=== PATIENT | female | born 1940 | race Caucasian/White ===

== ENCOUNTER 2016-09-16 18:15 | Emergency (ER) | payer MEDICARE, OTHER ==
[2016-09-16 12:53] LABS: BASOPHILS 0.5 %; BASOPHILS ABSOLUTE 0.03 10/3/uL (0.0-0.16); EOSINOPHILS ABSOLUTE 0.22 10/3/uL (0.0-0.53); HEMATOCRIT 42.8 % (36.0-48.0); HEMOGLOBIN 13.7 g/dL (12.0-16.0); IMMATURE GRANULOCYTES 0.4 %; IMMATURE GRANULOCYTES ABSOLUTE 0.02 10/3/uL (0.0-0.11); LYMPHOCYTES 20.3 %; LYMPHOCYTES ABSOLUTE 1.11 10/3/uL (0.67-4.30); MANUAL DIFF NO %; MEAN CORPUSCULAR VOLUME 93.9 fL (80-100); MEAN PLATELET VOLUME 9.2 fL (9.2-13.0); MONOCYTES ABSOLUTE 0.38 10/3/uL (0.21-1.20); NEUTROPHILS 67.8 %; PLATELET COUNT 140 10/3/uL (150-400); RBC DISTRIBUTION WIDTH 14.4 % (12.0-16.0); RED CELL COUNT 4.56 10/6/uL (4.0-5.6); WHITE BLOOD CELLS 5.5 10/3/uL (4.5-10.5)
[2016-09-16 13:01] LABS: PARTIAL THROMBO TIME 28.1 SEC (22.5-37.2); PROTIME (NOT ORD) 12.9 SEC (12.0-14.5)
[2016-09-16 13:07] LABS: BUN (BLOOD UREA NITROGEN) 20 MG/DL (6-23); CALCIUM, SERUM 9.5 MG/DL (8.5-10.4); CHEST PAIN PROFILE TAT 0 Hrs 18 Mins; CHLORIDE, SERUM 99 MMOL/L (96-112); CO2 (CARBON DIOXIDE) 34 MMOL/L (24-34); CREATININE 0.93 MG/DL (0.55-1.02); GFR AFRICAN AMERICAN 70 ML/MIN (>=60); GFR NON AFRICAN AMERICAN 61 ML/MIN (>=60); POTASSIUM, SERUM 4.1 MMOL/L (3.5-5.3); SODIUM, SERUM 141 MMOL/L (135-148); TROPONIN I <0.02 NG/ML (<0.05)
[2016-09-16 13:08] LABS: GLUCOSE, SERUM 342 MG/DL (60-99)
[~2016-09-16 18:15] MED LIST: ACIDOPHILU2 PO; APIDRA SC; APRES25 PO; ASAB PO; ATV1 PO; B12100T PO; BARRIER CREAM TOP; BROVANA15 MCG INH; CARASPUDL PO; CEFT2 PO; CENTRUM PO; CENTRUM TAB1 TAB PO; CIP5 PO; CLEOCIN300 MG PO; COREG12 PO; COREG25 PO; COREG6 PO; COZ50 PO; COZAAR100 MG PO; DSS PO; DUONEB INH; FENESIN DM1 TAB PO; FERROUS SULF325 M1 PO; FISH OIL1200 MG PO; FISH-EPA1000 MG PO; FLONASE NAS; GLUCOPHAGE1000 MG PO; GLUCPH PO; GLUCXL10 PO; HALF81 PO; HCTZ50B PO; HYDROCHLOROT50 MG PO; I20 PO; I40 PO; INDE80 PO; INSULIN GLULISINE SC; K-TABS10 MEQ PO; KDUR10 PO; KLONO5 PO; L20 PO; L40 PO; LEVAQUIN750 MG PO; LEVEMFLXPN SC; LEVEMIR SC; LEVSINTAB PO; LOP25 PO; LORT7 PO; LORTAB 5 PO; LOVENOX40 SC; MAGOX4 PO; MAX25 PO; MICROZIDE PO; MOBIC15 MG PO; MUCINEX1200 MG PO; MUCINEX600 MG PO; MULTIVIT/MIN PO; NEUR300 PO; NEUR600 PO; NICODERM C14 MG/24 H TOP; NITROSTAT0.4 MG SL; NORCO1 TA1 PO; NORV10 PO; NORV25 PO; NOVOPEN SC; P10 PO; P5 PO; PAXIL40 MG PO; PERFOROM INH; PLAVIX PO; PREDNISONE2.5 MG PO; PRILOSEC10 MG PO; PRILOSEC40 MG PO; PRIM50B PO; PRIN5 PO; PROVHFA INH; PULMICORT90 MCG INH; PULRESP.25 INH; PULRESP.5 INH; RHINOCORT; SIN25 PO; SPIRIVA INH; STERAPRED DS10 MG; STERAPRED5 MG; STOOL SOFTEN100 MG PO; TOPXL25 PO; VENTOLIN HFA INH; VITAMIN C OR; VITAMIN C100 MG PO; VITAMIN D1000 UNI1 PO; VITC500 PO; VITE PO; ZANAFLEX 4 MG TA4 MG PO; ZOCOR40 PO; ZOFRAN4 PO; [UNRECOGNIZED DRUG - OTHER]; [UNRECOGNIZED DRUG - OTHER]
== END 2016-09-16 19:59 | disposition home or self-care (01) ==
LOC: ER 18:15
PROVIDERS: Emergency Medicine
DX: I50.9 Heart failure, unspecified (principal); I25.2 Old myocardial infarction; E11.9 Type 2 diabetes mellitus without complications; Z95.1 Presence of aortocoronary bypass graft; Z86.73 Personal history of transient ischemic attack (TIA), and cerebral infarction without residual deficits; Z87.442 Personal history of urinary calculi; Z87.891 Personal history of nicotine dependence; Z79.82 Long term (current) use of aspirin
CPT/HCPCS: 71020; 80048; 83735; 83880; 84484; 85025; 85610; 85730; 93005; 96374; 99285

== ENCOUNTER 2016-09-25 18:35 | Inpatient (IN) | payer MEDICARE, OTHER ==
--- NOTE | ~2016-09-25 | DS ---
Discharge Summary [facility] [address] [place]. [address] NAME: VIDHI SHETH : 42 STATUS : DIS IN PAT#: [id number] AGE: 75 ADM/REG DATE : 09/26/16 MR#: [id number] REPORT SERV DATE: 09/29/16 DICTATED BY: SUSAN COELHO II DATE: 09/27/16 REPORT STATUS : Draft TRANSCRIBED BY: MODL DATE: 09/27/16 ADMISSION DATE: 09/25/2016 DISCHARGE DATE: 09/27/2016 DISCHARGE DIAGNOSES: 1. Acute on chronic diastolic congestive heart failure. 2. Acute on chronic hypoxic respiratory failure. 3. Chronic obstructive pulmonary disease. 4. Obstructive sleep apnea. 5. Urinary tract infection. 6. Diabetes mellitus type 2, uncontrolled. 7. History of coronary artery disease and peripheral arterial disease. 8. History of sick sinus syndrome, status post permanent pacemaker. 9. Morbid obesity. BRIEF HISTORY OF PRESENT ILLNESS: The patient is a 75-year-old female with the above history, who presented to [facility] due to worsening edema and shortness of breath. For detailed history and physical examination, please see Dr. Diaz's note from September 25, 2016. HOSPITAL COURSE: After admission, the patient was given IV diuresis with good response in her lower extremity edema, currently it is nearly resolved. Her creatinine has remained stable around 1, and she has been switched to oral Bumex. At home, she was on Bumex 1 mg p.o. b.i.d. as well as Lasix 40 mg p.o. b.i.d. Given this did not seem to be controlling her edema, I will discontinue the Lasix and double her Bumex at home. She was also educated on fluid restriction as it appeared she was under the impression she needed to drink more fluid to help with her edema. Otherwise, she is on her baseline O2 of 3 liters by nasal cannula and saturating well. Her BNP on admission was not extremely high but 116. Chest x- ray showed mild venous congestion with mild basilar atelectasis. The patient was receiving home health and PT and will resume this, though we will add CHF protocol. Also, Dopplers of her lower extremities did not show any DVT. She will need a followup BMP this week to check on her creatinine and electrolytes given the increased dose of Bumex. Otherwise, she was given Rocephin for her UTI as she was having dysuria, and she had 62 white cells in her urine with large leukocyte esterase. Currently, urine culture is not back yet, but we will switch to Omnicef for 4 more days. Otherwise, her diabetes was very uncontrolled in the 200s and 300s. Her A1c is 9.8. I have increased her Levemir to 40 b.i.d. and increased her NovoLog to 8 with meals plus sliding scale. At this point, she is otherwise stable for discharge home. DISCHARGE MEDICATIONS: 1. Vitamin C 1000 mg p.o. at bedtime. 2. Aspirin 81 mg p.o. daily. 3. Bumex 2 mg p.o. b.i.d. 4. Coreg 25 mg p.o. b.i.d. 5. Plavix 75 mg p.o. daily. 6. Vitamin D3, 1000 units p.o. daily. 7. Ferrous sulfate 325 mg p.o. daily. Discharge Summary [address] [address] NAME: VIDHI SHETH : 42 STATUS : DIS IN PAT#: [id number] AGE: 75 ADM/REG DATE : 09/26/16 MR#: [id number] REPORT SERV DATE: 09/29/16 DICTATED BY: SUSAN COELHO II DATE: 09/27/16 REPORT STATUS : Draft TRANSCRIBED BY: MONY DATE: 09/27/16 8. Neurontin 300 mg p.o. b.i.d. 9. Levemir 40 units subcu b.i.d. 10.NovoLog 8 units subcu t.i.d. a.c. 11.Losartan 50 mg p.o. b.i.d. 12.Multivitamin daily. 13.Prilosec 40 mg p.o. daily. 14.Paxil 40 mg p.o. daily. 15.Zocor 40 mg p.o. at bedtime. 16.Vitamin E 400 units p.o. at bedtime. 17.Albuterol 1 neb b.i.d. 18.Brovana 15 mcg inhaled b.i.d. 19.Pulmicort 0.5 mg inhaled b.i.d. 20.Probiotic tab daily. 21.Vitamin B12 daily. 22.Tylenol p.r.n. 23.Potassium 20 mEq p.o. daily. 24.Omnicef 300 mg p.o. b.i.d. x4 days. DISCHARGE INSTRUCTIONS: The patient will follow up with Dr. Roberts in 1 to 2 weeks. OITLIA/MONY Susan Coelho II, MD / [id number] CC: MD Elyssa Sadler II, M.D. Siobhan Duff, M.D.
--- NOTE | ~2016-09-25 | HP ---
History And Physical [facility] [id number] [place]. [address] NAME: VIDHI SHETH : 42 STATUS : ADM Iva PAT#: [id number] AGE: 75 ADM/REG DATE : 09/25/16 MR#: [id number] REPORT SERV DATE: 09/26/16 DICTATED BY: OSCAR ORO DATE: 09/25/16 REPORT STATUS : Draft TRANSCRIBED BY: MODL DATE: 09/25/16 DATE OF ADMISSION: 09/25/2016 CHIEF COMPLAINT: Increased swelling. HISTORY OF PRESENT ILLNESS: The patient is a 75-year-old female with past medical history of diabetes with neuropathy; coronary artery disease, status post CABG in 2011, followed by Dr. Matos; pacemaker for sick sinus syndrome; peripheral arterial disease with bilateral stent placement; nephrolithiasis; depression; IBS; colon polyps, followed by Dr. Agudelo; essential tremor; stroke history by CT; elevated cholesterol; obstructive sleep apnea, not on CPAP; fibromyalgia; nephrolithiasis; B12 deficiency; goiter, who presents after having increased swelling over the last two days. Symptoms have been constant, moderate severity. Has noted increased weight gain. No pain or radiating symptoms, but does have mild shortness of breath and swelling with these symptoms, mild redness in the lower extremities. No nausea, vomiting, diarrhea, fever, or chills. The patient has tried supportive treatment, but has not had any resolution of this. Symptoms are worsened with activity and are relieved by rest. The patient has been on dual diuretic therapy without any resolution. REVIEW OF SYSTEMS: For additional review of systems: GENERAL: No fever or chills. EYES: No eye pain or visual changes. ENT: No sore throat or congestion. NEURO: No headache or confusion. SKIN: Does have redness in the lower extremities. No rashes. RESPIRATORY: Does have shortness of breath, dyspnea on exertion. CV: No chest pain or palpitations, but positive for edema. GI: No nausea or vomiting. : No dysuria or hematuria. MUSCULOSKELETAL: Does have bilateral lower extremity swelling. No myalgias above baseline. ENDOCRINE: No fatigue or polyuria. HEME: No bleeding or bruising. IMMUNOLOGIC: No rhinorrhea. PSYCH: No anxiety or confusion. PAST MEDICAL HISTORY: As above. PAST SURGICAL HISTORY: CABG in 2011, pacemaker, foot surgery, breast biopsy, knee surgery. ALLERGIES: NO KNOWN DRUG ALLERGIES. HOME MEDICATIONS: Tylenol, albuterol, Brovana, vitamin C, aspirin, budesonide, Bumex, Coreg, vitamin D3, Plavix, ferrous sulfate, Lasix, Neurontin, NovoLog, Levemir, Levaquin, Cozaar, probiotic, multivitamin, Prilosec, Paxil, Zocor, vitamin E, vitamin B12, potassium. History And Physical [address] [address] NAME: VIDHI SHETH : 42 STATUS : ADM Iva PAT#: [id number] AGE: 75 ADM/REG DATE : 09/25/16 MR#: [id number] REPORT SERV DATE: 09/26/16 DICTATED BY: OSCAR ORO DATE: 09/25/16 REPORT STATUS : Draft TRANSCRIBED BY: MONY DATE: 09/25/16 SOCIAL HISTORY: Quit smoking in 2011. Per records, over [id number] history of smoking. The patient reports that if she could, she would still continue to smoke. No alcohol. No illicits. Lives in [place]. Retired from [employer]. Accompanied by . FAMILY HISTORY: COPD, colon cancer, heart disease, and diabetes. PHYSICAL EXAMINATION: VITAL SIGNS: The patient's blood pressure 145/63, temperature 98.5, pulse 60, respirations 20, O2 sats 87% on 2 L but improved to 94% on 4 L. GENERAL: At rest, the patient is in no acute distress, calm, pleasant, obese. EYES: No scleral icterus. EOMI. ENT: Moist mucous membranes. Tongue midline. NECK: No JVD, but large neck. RESPIRATORY: Mild decreased lung kunz in bilateral lower lung kunz. No stridor. Faint end-expiratory wheeze. CV: Regular rate. No rubs, but bilateral edema. GI: Soft, nontender. Central obesity. No fluid wave. : Deferred. MUSCULOSKELETAL: Moves all extremities x4. Does have redness in lower right extremity. SKIN: Warm and dry with chronic venous stasis changes in lower extremities, but notably, right leg erythema. LYMPH: 2 to 3+ edema in lower extremities. HEME: No bleeding or bruising. NEURO: Alert and oriented. Moves all extremities x4. Strength equal in hands. The patient has mildly decreased sensation in lower extremities. PSYCH: Appropriate mood and affect, pleasant. LABORATORY DATA: EKG; paced rate, 61. BMP: Sodium 141, potassium 3.8, chloride 96, bicarb 35, BUN and creatinine 24 and 1.07, glucose 326, calcium 9.4, magnesium 1.6. Troponin 0.02. CBC grossly within normal limits. INR 1. BNP 116. Portable chest; mild venous congestion, mild basilar atelectasis, status post CABG and pacer placement. Chest x-ray; does have venous congestion and status post CABG and pacer placement. ASSESSMENT: 1. Volume overload with bilateral lower extremity edema. 2. Cellulitis. 3. Hypertension. 4. Diabetes type 2. 5. Coronary artery disease. 6. Sick sinus syndrome. 7. Peripheral arterial disease. PLAN: 1. For volume overload, bilateral lower extremity edema, has had fluid retention, check ultrasound of lower extremities to rule out DVT. Diuretics IV with metolazone dose x1. The patient on dual diuretic therapy. We need to watch for I's and O's and possible fluid restriction. History And Physical [address] [address] NAME: VIDHI SHETH : 42 STATUS : ADM Iva PAT#: [id number] AGE: 75 ADM/REG DATE : 09/25/16 MR#: [id number] REPORT SERV DATE: 09/26/16 DICTATED BY: OSCAR ORO DATE: 09/25/16 REPORT STATUS : Draft TRANSCRIBED BY: MODL DATE: 09/25/16 2. Cellulitis. Ancef. Rule out DVT. 3. Hypertension. Beta-rosalba and ARB. 4. Diabetes type 2. Levemir sliding scale insulin and with meal insulin. 5. Coronary artery disease. Continue home medications. 6. Sick sinus syndrome, status post pacer history. 7. Peripheral arterial disease, status post bilateral stents. Could be an additional component of lower extremity edema. Ultrasound pending. DISPOSITION: Pending findings from above. All questions answered with the patient and family at bedside. DDN/MODL Oscar Oro MD / [id number] CC: Kavin Carter Jr, MD
[2016-09-25 16:23] LABS: BASOPHILS 0.5 %; BASOPHILS ABSOLUTE 0.03 10/3/uL (0.0-0.16); EOSINOPHILS ABSOLUTE 0.18 10/3/uL (0.0-0.53); ER CBC TAT 0 Hrs 05 Mins; HEMATOCRIT 40.6 % (36.0-48.0); IMMATURE GRANULOCYTES 0.2 %; IMMATURE GRANULOCYTES ABSOLUTE 0.01 10/3/uL (0.0-0.11); LYMPHOCYTES 15.6 %; LYMPHOCYTES ABSOLUTE 0.94 10/3/uL (0.67-4.30); MEAN CORPUSCULAR HEMOGLOB 29.9 pg (26.0-34.0); MEAN CORPUSCULAR VOLUME 93.3 fL (80-100); MONOCYTES 8.5 %; MONOCYTES ABSOLUTE 0.51 10/3/uL (0.21-1.20); NEUTROPHILS 72.2 %; NEUTROPHILS ABSOLUTE 4.35 10/3/uL (2.02-8.40); PLATELET COUNT 155 10/3/uL (150-400); RBC DISTRIBUTION WIDTH 14.2 % (12.0-16.0); RED CELL COUNT 4.35 10/6/uL (4.0-5.6)
[2016-09-25 16:27] LABS: MANUAL DIFF NO %
[2016-09-25 16:32] LABS: PROTIME (NOT ORD) 12.9 SEC (12.0-14.5)
[2016-09-25 16:40] LABS: CALCIUM, SERUM 9.4 MG/DL (8.5-10.4); CHEST PAIN PROFILE TAT 0 Hrs 22 Mins; CHLORIDE, SERUM 96 MMOL/L (96-112); CO2 (CARBON DIOXIDE) 35 MMOL/L (24-34); CREATININE 1.07 MG/DL (0.55-1.02); GFR AFRICAN AMERICAN 59 ML/MIN (>=60); GFR NON AFRICAN AMERICAN 51 ML/MIN (>=60); GLUCOSE, SERUM 326 MG/DL (60-99); POTASSIUM, SERUM 3.8 MMOL/L (3.5-5.3); SODIUM, SERUM 141 MMOL/L (135-148); TROPONIN I <0.02 NG/ML (<0.05)
[2016-09-25 16:41] LABS: BUN (BLOOD UREA NITROGEN) 24 MG/DL (6-23)
[2016-09-25] MEDS ORDERED: PLAVIX PO (19:27)
[2016-09-25] MEDS ORDERED: COREG25 PO (19:27)
[2016-09-25] MEDS ORDERED: COZ50 PO (19:27)
[2016-09-25] MEDS ORDERED: PAXIL40 MG PO (19:27)
[2016-09-25] MEDS ORDERED: NEUR300 PO (19:27)
[2016-09-25] MEDS ORDERED: VITC500 PO (19:28)
[2016-09-25] MEDS ORDERED: PRILOSEC40 MG PO (19:28)
[2016-09-25] MEDS ORDERED: ASAB PO (19:28)
[2016-09-25] MEDS ORDERED: VITE PO (19:28)
[2016-09-25] MEDS ORDERED: VITAMIN D31000 UNIT PO (19:28)
[2016-09-25] MEDS ORDERED: ZOCOR40 PO (19:28)
[2016-09-25] MEDS ORDERED: NOVOPEN SC (19:29)
[2016-09-25] MEDS ORDERED: LEVEMIR SC (19:29)
[2016-09-25] MEDS ORDERED: PULRESP.5 INH (19:30)
[2016-09-25] MEDS ORDERED: ALBUTEROL0.083 % INH (19:30)
[2016-09-25] MEDS ORDERED: BROVANA15 MCG INH (19:31)
[2016-09-25] MEDS ORDERED: FERROUS SULF325 M1 PO (19:38)
[2016-09-25] MEDS ORDERED: PROBIOTIC PO (19:38)
[2016-09-25] MEDS ORDERED: VITAMIN B-12 OTC PO (19:40)
[2016-09-25] MEDS ORDERED: MULTIVIT/MIN PO (19:41)
[2016-09-25] MEDS ORDERED: LEVAQUIN750 MG PO (19:41)
[2016-09-25] MEDS ORDERED: ACET500CAP PO (19:41)
[2016-09-25] MEDS ORDERED: L40 PO (19:41)
[2016-09-25] MEDS ORDERED: BUM2 PO (19:41)
[2016-09-25] MEDS ORDERED: KLOR-CON M2020 MEQ PO (19:42)
[2016-09-26 05:37] LABS: ALKALINE PHOSPHATASE 66 U/L (45-117); BUN (BLOOD UREA NITROGEN) 26 MG/DL (6-23); CALCIUM, SERUM 9.2 MG/DL (8.5-10.4); CHLORIDE, SERUM 98 MMOL/L (96-112); CO2 (CARBON DIOXIDE) 35 MMOL/L (24-34); CREATININE 1.07 MG/DL (0.55-1.02); GFR AFRICAN AMERICAN 59 ML/MIN (>=60); GFR NON AFRICAN AMERICAN 51 ML/MIN (>=60); GLOBULIN 3.1 G/DL (2.5-4.1); GLUCOSE, SERUM 324 MG/DL (60-99); POTASSIUM, SERUM 3.8 MMOL/L (3.5-5.3); SGOT(AST) 11 U/L (5-40); SGPT(ALT) 15 U/L (5-65); SODIUM, SERUM 144 MMOL/L (135-148); TOTAL BILIRUBIN 0.3 MG/DL (0-1.2); TOTAL PROTEIN 6.1 G/DL (6.0-8.5)
[2016-09-26 05:41] LABS: BASOPHILS 0.4 %; BASOPHILS ABSOLUTE 0.02 10/3/uL (0.0-0.16); EOSINOPHILS 3.8 %; EOSINOPHILS ABSOLUTE 0.19 10/3/uL (0.0-0.53); HEMATOCRIT 37.5 % (36.0-48.0); HEMOGLOBIN 11.7 g/dL (12.0-16.0); IMMATURE GRANULOCYTES 0.4 %; IMMATURE GRANULOCYTES ABSOLUTE 0.02 10/3/uL (0.0-0.11); LYMPHOCYTES 21.8 %; MEAN CORPUS HGB CONC 31.2 g/dL (32.0-36.0); MEAN CORPUSCULAR HEMOGLOB 29.4 pg (26.0-34.0); MEAN CORPUSCULAR VOLUME 94.2 fL (80-100); MEAN PLATELET VOLUME 9.8 fL (9.2-13.0); MONOCYTES 8.5 %; MONOCYTES ABSOLUTE 0.43 10/3/uL (0.21-1.20); NEUTROPHILS 65.1 %; NEUTROPHILS ABSOLUTE 3.29 10/3/uL (2.02-8.40); PLATELET COUNT 152 10/3/uL (150-400); RBC DISTRIBUTION WIDTH 14.2 % (12.0-16.0); RED CELL COUNT 3.98 10/6/uL (4.0-5.6); WHITE BLOOD CELLS 5.1 10/3/uL (4.5-10.5)
[2016-09-26 05:46] LABS: MANUAL DIFF NO %
[2016-09-26 06:28] LABS: ASCORBIC ACID (UR NOT ORDER) 20 (NEG); BILIRUBIN, URINE NEGATIVE (NEG); KETONE, URINE NEGATIVE (NEG); LEUKOCYTE ESTERASE(NOT OR LARGE (NEG); WBC (NOT ORDERED) (RFLEX) 62 (0-5)
[2016-09-27 04:32] LABS: BASOPHILS 0.4 %; BASOPHILS ABSOLUTE 0.02 10/3/uL (0.0-0.16); EOSINOPHILS 3.2 %; EOSINOPHILS ABSOLUTE 0.16 10/3/uL (0.0-0.53); HEMATOCRIT 36.7 % (36.0-48.0); HEMOGLOBIN 11.5 g/dL (12.0-16.0); IMMATURE GRANULOCYTES 0.2 %; IMMATURE GRANULOCYTES ABSOLUTE 0.01 10/3/uL (0.0-0.11); LYMPHOCYTES 19.7 %; LYMPHOCYTES ABSOLUTE 0.99 10/3/uL (0.67-4.30); MEAN CORPUS HGB CONC 31.3 g/dL (32.0-36.0); MEAN CORPUSCULAR HEMOGLOB 29.5 pg (26.0-34.0); MEAN CORPUSCULAR VOLUME 94.1 fL (80-100); MEAN PLATELET VOLUME 9.6 fL (9.2-13.0); MONOCYTES 11.3 %; MONOCYTES ABSOLUTE 0.57 10/3/uL (0.21-1.20); NEUTROPHILS 65.2 %; NEUTROPHILS ABSOLUTE 3.28 10/3/uL (2.02-8.40); PLATELET COUNT 146 10/3/uL (150-400); RBC DISTRIBUTION WIDTH 14.4 % (12.0-16.0)
[2016-09-27 04:35] LABS: MANUAL DIFF NO %
[2016-09-27 04:41] LABS: BUN (BLOOD UREA NITROGEN) 27 MG/DL (6-23); CALCIUM, SERUM 9.3 MG/DL (8.5-10.4); CHLORIDE, SERUM 96 MMOL/L (96-112); CO2 (CARBON DIOXIDE) 37 MMOL/L (24-34); CREATININE 1.04 MG/DL (0.55-1.02); GFR AFRICAN AMERICAN 61 ML/MIN (>=60); GFR NON AFRICAN AMERICAN 53 ML/MIN (>=60); GLUCOSE, SERUM 298 MG/DL (60-99); SODIUM, SERUM 143 MMOL/L (135-148)
[2016-09-27] MEDS ORDERED: OMNICEF300 PO (11:20)
== END 2016-09-27 13:59 | disposition home health service (06) | DRG 291 ==
LOC: ER 18:35 → CDU1 21:09 → CDU2 21:31
PROVIDERS: Emergency Medicine; Internal Medicine
DX: I50.33 Acute on chronic diastolic (congestive) heart failure (principal); J96.21 Acute and chronic respiratory failure with hypoxia; E11.65 Type 2 diabetes mellitus with hyperglycemia; N39.0 Urinary tract infection, site not specified; J44.9 Chronic obstructive pulmonary disease, unspecified; G47.33 Obstructive sleep apnea (adult) (pediatric); I25.10 Atherosclerotic heart disease of native coronary artery without angina pectoris; E66.01 Morbid (severe) obesity due to excess calories; I73.9 Peripheral vascular disease, unspecified; Z95.0 Presence of cardiac pacemaker; Z68.36 Body mass index [BMI] 36.0-36.9, adult; Z79.82 Long term (current) use of aspirin; Z79.02 Long term (current) use of antithrombotics/antiplatelets; Z79.4 Long term (current) use of insulin
CPT/HCPCS: 71020; 80048; 80053; 81001; 82962; 83036; 83735; 83880; 84145; 84484; 85025; 85610; 85730; 87040; 87086; 93005; 93306; 93970; 94640; 96374; 96375; 99285; A9270-GY; J0690